=== PATIENT | female | born 1970 | race American Indian/Alaskan Native ===

== ENCOUNTER 2017-04-01 16:27 | Emergency (ER) | payer OTHER ==
[2017-04-01 16:30] VITALS: BMI 30.1
[2017-04-01] MEDS ORDERED: Albuterol-Ipratrop 3 mg / 0.5 (3 ml) UD IH STA (16:42)
--- NOTE | 2017-04-01 16:44 | ED PDOC ---
Arrival/HPI - General Chief Complaint: Shortness Of Breath Time Seen by Provider: 04/01/17 16:41 Historian: Patient - History of Present Illness Narrative History of Present Illness (Text): 04/01/17 16:34 A 46 year old female, whose past medical history includes DVT (in 2001, finished anticoagulant course), presents to the emergency department complaining of a productive cough for the past 2 weeks. Patient reports yesterday she developed a sharp pain to the left back while coughing, so she decided to come to the emergency department to get evaluated. Pain is worse when taking a deep breath. She denies any chest pain, shortness of breath, fever , or other complaints at this time. Time/Duration: > week Symptom Onset: Other Symptom Course: Other Quality: Other Activities at Onset: Rest Context: Home Past Medical History - Provider Review Nursing Documentation Reviewed: Yes - Infectious Disease Hx of Infectious Diseases: None - Tetanus Immunization Tetanus Immunization: Unknown - Cardiac Hx Cardiac Disorders: Yes Hx Peripheral Edema: Yes Other/Comment: dvt 2010, " supraprominent vein lower right head as per pt - Pulmonary Hx Respiratory Disorders: No - Neurological Hx Migraine: Yes Other/Comment: neuropathy hands and left leg, "nerves in hands and left leg swollen" as per pt - HEENT Hx HEENT Disorder: No - Renal Hx Renal Disorder: No - Endocrine/Metabolic Hx Endocrine Disorders: No - Hematological/Oncological Hx Blood Disorders: No Hx Anemia: Yes - Integumentary Hx Dermatological Disorder: No - Musculoskeletal/Rheumatological Hx Falls: No - Gastrointestinal Hx Gastrointestinal Disorders: No - Genitourinary/Gynecological Hx Genitourinary Disorders: Yes (heavy periods) Other/Comment: uterine fibroids - Psychiatric Hx Anxiety: Yes Hx Substance Use: No Other/Comment: "stutters and smokes heavily when I have anxiety" as per pt - Past Surgical History Past Surgical History: No Previous - Surgical History Hx Orthopedic Surgery: Yes (left foot) - Anesthesia Hx Anesthesia: Yes Hx Anesthesia Reactions: No Hx Malignant Hyperthermia: No - Suicidal Assessment Feels Threatened In Home Enviroment: No Family/Social History - Physician Review Nursing Documentation Reviewed: Yes Family/Social History: Unknown Family HX Smoking Status: Heavy Smoker > 10 Cigarettes Daily Hx Alcohol Use: No Hx Substance Use: No Hx Substance Use Treatment: No Allergies/Home Meds Allergies/Adverse Reactions: Allergies Penicillins Allergy (Verified 04/01/17 16:30) RASH sulfamethoxazole [From Bactrim] Allergy (Verified 04/01/17 16:30) WHEEZING trimethoprim [From Bactrim] Allergy (Verified 04/01/17 16:30) WHEEZING Physical Exam - Physical Exam Narrative Physical Exam (Text): - Review of Systems Constitutional: Normal. absent: Fatigue, Weight Change, Fevers Eyes: Normal ENT: Normal Respiratory: Cough, Sputum. absent: SOB Cardiovascular: Normal absent: Chest pain, Palpitations, Syncope Gastrointestinal: Normal absent: Abdominal pain, Diarrhea, Nausea, Vomiting Genitourinary: Normal. absent: Dysuria, Frequency, Hematuria Musculoskeletal: Back pain. absent: Arthralgias, Neck Pain Skin: Normal Neurological: Normal absent: Focal Weakness Endocrine: Normal Hemo/Lymphatic: Normal Psychiatric: Normal - Physical exam Patient appears age appropriate, speaking full sentences without difficulty. - Systems Exam Head: Present: Atraumatic, Normocephalic Pupils: Present: PERRL Extraocular Muscles: Present: EOMI Conjunctiva: Present: Normal Mouth: Present: Moist Mucous Membranes Neck: Present: Normal Range of Motion. No: MIDLINE TENDERNESS, Paraspinal Tenderness Respiratory/Chest: Present: Good Air Exchange. Diffuse rhonchi but greater on the left. Reproducible left posterior rib pain with palpation. No: Respiratory Distress, Accessory Muscle Use, Tachypneic Cardiovascular: Present: Regular Rate and Rhythm, Normal S1, S2, Peripheral Pulses Present. No: Murmurs Abdomen: Present: Normal Bowel Sounds, No: Tenderness, Peritoneal Signs, Rebound, Guarding, Distention Back: Present: Normal Inspection. No: Midline Tenderness, Paraspinal Tenderness Upper Extremity: Present: Normal Inspection. No: Cyanosis, Edema Lower Extremity: Present: Normal Inspection. No: Edema Neurological: Present: GCS=15, Speech Normal, cranial nerves II through XII fully intact with no cerebellar abnormality, neuro-sensory fully intact. No focal neurological deficits. Skin: Present: Warm, Dry, Normal Color. No: Rashes Lymphatic: Present: OX3, NI, NC Psychiatric: Present: Alert, Oriented x 3, Normal Insight, Normal Concentration Vital Signs Reviewed: Yes Vital Signs Temp Pulse Resp BP Pulse Ox 04/01/17 16:28 97.4 F L 64 18 115/73 100 Respiratory Rate: Normal Appearance: Positive for: Well-Appearing, Non-Toxic, Comfortable Pain Distress: None Mental Status: Positive for: Alert and Oriented X 3 Medical Decision Making ED Course and Treatment: 04/01/17 16:34 Impression: A 46 year old female with a productive cough and left posterior rib pain. On physical examination the patient has diffuse rhonchi (greater on the left) and reproducible pain on the left posterior ribs. Differential Diagnosis include but are not limited to: Pneumonia vs. Bronchitis vs. Spasm Plan: -- EKG -- Chest X-ray -- Labs -- Duoneb, Toradol and Prednisone -- Reassess and disposition Progress Notes: EKG: Ordered, reviewed, and independently interpreted the EKG. Rate : 65 BPM Rhythm : NSR Interpretation : No ST-segment elevations, normal intervals. Interpreted by me. 04/01/17 18:02 Smoking Cessation Counseling: The patient was counseled as to the multiple risks to his/her health from continued use of tobacco products. It was explained that continuing to smoke may lead to multiple short and watermelon inspector negative health consequences, including but not limited to mouth/esophageal/lung cancer, COPD, and heart disease. He/she states he/she understands these risks, and also understands the options and resources available to him/her to help him/her stop smoking. Nicotine replacement therapy, local hotlines, and local resources were discussed as viable options for helping him/her stop his/her tobacco use. The total time spent counseling the patient regarding tobacco cessation was 4 minutes. 04/01/17 18:15 Chest x-ray read by me shows no cardiomegaly' no effusions; right lower lobe infiltrates. 04/01/17 19:07 pt reports feels better denies complaints at this time in no resp distress rhonchi significantly inproved d-dimer negative will dc home with inhailer, prednisode, abx, pain meds pt states she feels comfortable being dc'd home with outpatient f/u Pt states she understands to return to the ER right away for new or worsening symptoms or for inability to f/u with PMD or specialist as instructed. Patient states that she fully agrees with and understands discharge instructions. States that she agrees with the plan and disposition. Verbalized and repeated discharge instructions and plan. I have given the patient opportunity to ask any additional questions. - Lab Interpretations Lab Results: 04/01/17 17:00 04/01/17 17:00 Lab Results 04/01/17 17:00: Sodium 137, Potassium 4.1, Chloride 102, Carbon Dioxide 28, Anion Gap 11, BUN 10, Creatinine 0.8, Est GFR ( Amer) > 60, Est GFR (Non- Af Amer) > 60, Random Glucose 102, Calcium 8.6, Total Bilirubin 0.7, AST 28, ALT 22, Alkaline Phosphatase 48, Total Protein 7.2, Albumin 4.1, Globulin 3.0, Albumin/Globulin Ratio 1.4 04/01/17 17:00: PT 11.3, INR 1.05, APTT 25.5, D-Dimer, Quantitative 0.38 04/01/17 17:00: WBC 5.4 D, RBC 4.68, Hgb 10.7 L, Hct 33.6 L, MCV 71.8 L, MCH 22.9 L, MCHC 31.8, RDW 15.8 H, Plt Count 211, MPV 9.8, Gran % 47.9 L, Lymph % ( Auto) 44.4 H, [place] % (Auto) 5.6, Eos % (Auto) 1.7, Baso % (Auto) 0.4, Gran # 2.58, Lymph # 2.4, [place] # 0.3, Eos # 0.1, Baso # 0.02 I have reviewed the lab results: Yes - RAD Interpretation Radiology Orders: 04/01/17 16:44 CHEST TWO VIEWS (PA/LAT) [RAD] Stat - Medication Orders Current Medication Orders: Discontinued Medications Albuterol/Ipratropium (Duoneb 3 Mg/0.5 Mg (3 Ml) Ud) 3 ml IH STAT STA Stop: 04/01/17 16:43 Last Admin: 04/01/17 17:17 Dose: 3 ml Ketorolac Tromethamine (Toradol) 15 mg IVP STAT STA Stop: 04/01/17 16:43 Last Admin: 04/01/17 17:17 Dose: 15 mg Prednisone (Prednisone Tab) 60 mg PO STAT ONE Stop: 04/01/17 16:43 Last Admin: 04/01/17 17:17 Dose: 60 mg - Scribe Statement The provider has reviewed the documentation as recorded by the Pauly Andino Provider Aideibe Attestation: All medical record entries made by the Scribe were at my direction and personally dictated by me. I have reviewed the chart and agree that the record accurately reflects my personal performance of the history, physical exam, medical decision making, and the department course for this patient. I have also personally directed, reviewed, and agree with the discharge instructions and disposition. Disposition/Present on Arrival - Present on Arrival Any Indicators Present on Arrival: No History of DVT/PE: No History of Uncontrolled Diabetes: No Urinary Catheter: No History of Decub. Ulcer: No History Surgical Site Infection Following: None - Disposition Have Diagnosis and Disposition been Completed?: Yes Diagnosis: Cough Disposition: HOME/ ROUTINE Disposition Time: 19:11 Patient Plan: Discharge Condition: GOOD Discharge Instructions (ExitCare): Acute Bronchitis (ED), Back Pain (ED) Additional Instructions: PLEASE RETURN TO THE EMERGENCY DEPARTMENT FOR NEW OR WORSENING SYMPTOMS. RETURN RIGHT AWAY IF YOU CANNOT FOLLOW UP WITH YOUR PRIMARY CARE DOCTOR, CLINIC, OR SPECIALIST IN 1-2 DAYS. Prescriptions: Azithromycin [Zithromax] 250 mg PO DAILY #1 packet Benzonatate [Tessalon Perle] 100 mg PO Q8 PRN #12 capsule PRN Reason: Cough Ibuprofen [Motrin] 600 mg PO Q8 PRN #12 tab PRN Reason: Pain, Moderate (4-7) predniSONE [predniSONE Tab] 60 mg PO DAILY #12 tab Referrals: Pan Ledesma DO [Primary Care Provider] - Follow up with primary Forms: WORK NOTE
[2017-04-01 17:31] LABS: BASO # 0.02 K/mm3 (0.0-2.0); BASO % 0.4 % (0.0-3.0); EOS # 0.1 (0.0-0.7); EOS % 1.7 % (1.5-5.0); GRAN # 2.58 (1.4-6.5); GRAN % 47.9 % (50.0-68.0); HEMATOCRIT 33.6 % (36.0-48.0); LYMPH # 2.4 (1.2-3.4); LYMPH % 44.4 % (22.0-35.0); MEAN CELL VOLUME 71.8 fL (80.0-105.0); MEAN CORPUSCULAR HEMOGLOBIN 22.9 pg (25.0-35.0); MEAN CORPUSCULAR HGB CONC 31.8 g/dl (31.0-37.0); MEAN PLATELET VOLUME 9.8 fl (7.0-11.0); MONO # 0.3 (0.1-0.6); MONO % 5.6 % (1.0-6.0); PLATELET COUNT 211 10^3/uL (120.0-450.0); RED CELL DISTRIBUTION WIDTH 15.8 % (11.5-14.5); WHITE BLOOD COUNT 5.4 10^3/ul (4.5-11.0)
[2017-04-01 17:32] LABS: ADD MANUAL DIFF? NO
[2017-04-01 17:47] LABS: INR 1.05 (0.93-1.08); PARTIAL THROMBOPLASTIN TIME 25.5 Seconds (23.7-30.8)
[2017-04-01 17:49] LABS: ALB/GLOB RATIO 1.4 (1.1-1.8); ALKALINE PHOSPHATASE 48 U/L (38-133); ALT/SGPT 22 U/L (7-56); AST/SGOT 28 U/L (15-39); BILIRUBIN,TOTAL 0.7 mg/dL (0.2-1.3); BLOOD UREA NITROGEN 10 mg/dL (7-21); CALCIUM 8.6 mg/dL (8.4-10.5); CARBON DIOXIDE 28 mmol/L (21-33); CHLORIDE 102 mmol/L (98-107); GFR AFRICAN-AMERICAN > 60; GLUCOSE,RANDOM 102 mg/dL (70-110); POTASSIUM 4.1 mmol/L (3.6-5.0); SODIUM 137 mmol/L (132-148); TOTAL PROTEIN 7.2 g/dL (5.8-8.3)
[2017-04-01 17:53] LABS: D DIMER 0.38 mg/L FEU (0-0.50)
[2017-04-01 19:28] VITALS: BP 121/82; PULSE 71; RESP 19; TEMP 98.3; O2SAT 99
--- NOTE | 2017-04-02 09:34 | RAD ---
HISTORY: cough COMPARISON: No prior. TECHNIQUE: Chest PA and lateral FINDINGS: LUNGS: No active pulmonary disease. PLEURA: No significant pleural effusion identified. No pneumothorax apparent. CARDIOVASCULAR: Normal. OSSEOUS STRUCTURES: No significant abnormalities. VISUALIZED UPPER ABDOMEN: Normal. OTHER FINDINGS: None. IMPRESSION: No active disease.
--- NOTE | 2017-04-02 14:27 | CARD ---
APPROVED REPORT EKG Measurement Heart [id number] <Conclusion> Normal sinus rhythm Septal infarct, age undetermined Abnormal ECG
== END 2017-04-01 19:27 | disposition home or self-care (01) ==
LOC: ED 16:27
DX: R05 Cough (principal); Z88.0 Allergy status to penicillin; F17.210 Nicotine dependence, cigarettes, uncomplicated
CPT/HCPCS: 71020; 80053; 85025; 85378; 85610; 85730; 93005; 96374; 99285; J1885

== ENCOUNTER 2017-08-01 11:25 | Emergency (ER) | payer OTHER ==
[2017-08-01 11:40] VITALS: BMI 31.9
--- NOTE | 2017-08-01 12:12 | ED PDOC ---
Arrival/HPI - General Chief Complaint: Back Pain Time Seen by Provider: 08/01/17 11:54 Historian: Patient - History of Present Illness Narrative History of Present Illness (Text): 08/01/17 12:12 A 46 year old female, whose past medical history includes chronic back pain, presents to the emergency department complaining of right lower back pain for the past 2 weeks. Patient notes radiating pain down right lower extremity towards posterior aspect of right ankle. She also reports a numbing pain in her left big toe. No bowel/bladder incontinence. Patient denies any trauma, injury, fever, chills, nausea, vomiting, abdominal pain, urinary symptoms, chest pain, shortness of breath, headache, dizziness or any other complaints. Time/Duration: Other (2 weeks) Symptom Course: Unchanged Quality: Other Context: Other Past Medical History - Provider Review Nursing Documentation Reviewed: Yes - Infectious Disease Hx of Infectious Diseases: None - Tetanus Immunization Tetanus Immunization: Unknown - Cardiac Hx Cardiac Disorders: Yes Hx Peripheral Edema: Yes Other/Comment: dvt 2010, " supraprominent vein lower right head as per pt - Pulmonary Hx Respiratory Disorders: No - Neurological Hx Neurological Disorder: Yes Hx Migraine: Yes Other/Comment: neuropathy hands and left leg, "nerves in hands and left leg swollen" as per pt - HEENT Hx HEENT Disorder: No - Renal Hx Renal Disorder: No - Endocrine/Metabolic Hx Endocrine Disorders: No - Hematological/Oncological Hx Blood Disorders: No Hx Anemia: Yes - Integumentary Hx Dermatological Disorder: No - Musculoskeletal/Rheumatological Hx Falls: No - Gastrointestinal Hx Gastrointestinal Disorders: No - Genitourinary/Gynecological Hx Genitourinary Disorders: Yes (heavy periods) Other/Comment: uterine fibroids - Psychiatric Hx Psychophysiologic Disorder: Yes Hx Anxiety: Yes Hx Substance Use: No - Past Surgical History Past Surgical History: No Previous - Surgical History Hx Orthopedic Surgery: Yes (left foot) - Anesthesia Hx Anesthesia: Yes Hx Anesthesia Reactions: No Hx Malignant Hyperthermia: No - Suicidal Assessment Feels Threatened In Home Enviroment: No Family/Social History - Physician Review Nursing Documentation Reviewed: Yes Family/Social History: No Known Family HX Smoking Status: Heavy Smoker > 10 Cigarettes Daily Hx Alcohol Use: No Hx Substance Use: No Hx Substance Use Treatment: No Allergies/Home Meds Allergies/Adverse Reactions: Allergies Penicillins Allergy (Verified 08/01/17 11:40) RASH sulfamethoxazole [From Bactrim] Allergy (Verified 08/01/17 11:40) WHEEZING trimethoprim [From Bactrim] Allergy (Verified 08/01/17 11:40) WHEEZING Review of Systems - Physician Review All systems were reviewed & negative as marked: Yes - Review of Systems Constitutional: absent: Fevers, Night Sweats Respiratory: SOB (occ sob - no acute changes) Cardiovascular: absent: Chest Pain Gastrointestinal: absent: Abdominal Pain, Nausea, Vomiting Genitourinary Female: absent: Dysuria, Frequency, Hematuria Musculoskeletal: Back Pain (radiating down RLE), Other (Numbing pain in left big toe) Neurological: absent: Headache, Dizziness Physical Exam Vital Signs Reviewed: Yes Vital Signs Temp Pulse Resp BP Pulse Ox 08/01/17 14:46 97.9 F 58 L 17 117/70 97 08/01/17 12:44 66 18 127/75 100 08/01/17 11:43 97.8 F 65 18 128/80 100 Temperature: Afebrile Blood Pressure: Normal Pulse: Regular Respiratory Rate: Normal Appearance: Positive for: Non-Toxic, Uncomfortable (with movement) Pain Distress: Mild (due to back pain) Mental Status: Positive for: Alert and Oriented X 3 - Systems Exam Head: Present: Atraumatic, Normocephalic Pupils: Present: PERRL Conjunctiva: Present: Normal Mouth: Present: Moist Mucous Membranes Pharnyx: Present: Normal. No: ERYTHEMA, EXUDATE Neck: Present: Normal Range of Motion Respiratory/Chest: Present: Clear to Auscultation, Good Air Exchange. No: Respiratory Distress, Accessory Muscle Use Cardiovascular: Present: Regular Rate and Rhythm, Normal S1, S2. No: Murmurs Abdomen: Present: Normal Bowel Sounds. No: Tenderness, Distention, Peritoneal Signs Back: Present: Normal Inspection, Midline Tenderness (lower lumbar spine), Paraspinal Tenderness (b/L - R>L) Upper Extremity: Present: Normal Inspection. No: Cyanosis, Edema Lower Extremity: Present: Normal Inspection. No: Edema Neurological: Present: GCS=15, CN II-XII Intact, Speech Normal Skin: Present: Warm, Dry, Normal Color. No: Rashes Psychiatric: Present: Alert, Oriented x 3, Normal Insight, Normal Concentration Medical Decision Making ED Course and Treatment: 08/01/17 12:12 Impression: A 46 year old female right lower back pain Plan: -- Lumbar spine CT -- Chest xray -- EKG -- Labs -- Urine culture -- Valium, Toradol, Lidoderm and Ultram -- Reassess and disposition Progress Notes: EKG shows sinus bradycardia at 58 BPM with normal intervals, normal axis, no ST /T changes. Interpreted by me. 08/01/17 14:54 CT lumbar spine: FINDINGS: VERTEBRAE: Unremarkable. No fracture. Normal alignment. DISCS/SPINAL CANAL/NEURAL FORAMINA: L1-2: Unremarkable. L2-3: Unremarkable. L3-4: Unremarkable. L4-5: Moderate disc bulge L5-S1: Moderate disc bulge PARASPINAL SOFT TISSUES: Unremarkable. OTHER FINDINGS: None. IMPRESSION: Moderate disc bulge at L4-5 and L5-S1. Blood work is nondiagnostic. CT showing disc bulge, and patient likely with muscle spasms with no motor weakness or bowel/bladder incontinence. Patient feels better s/p meds; will d/c on nsaid, muscle relaxant, lidoderm patch and tramadol, and she has a pmd with whom she can follow up. Patient with no history of seizures, so tramadol/lidocaine is not contraindicated. - Lab Interpretations Lab Results: 08/01/17 13:00 08/01/17 14:00 Lab Results 08/01/17 14:00: Sodium 138, Potassium 3.6, Chloride 102, Carbon Dioxide 28, Anion Gap 12, BUN 8, Creatinine 0.7, Est GFR ( Amer) > 60, Est GFR (Non- Af Amer) > 60, Random Glucose 93, Calcium 8.7, Magnesium 1.8, Total Bilirubin 0.4, AST 20, ALT 26, Alkaline Phosphatase 59, Lactate Dehydrogenase 468, Total Creatine Kinase 140, Troponin I < 0.01, NT-Pro-B Natriuret Pep 58.1, Total Protein 6.7, Albumin 4.0, Globulin 2.7, Albumin/Globulin Ratio 1.5, Lipase 250 08/01/17 13:00: WBC 6.5 D, RBC 4.80, Hgb 11.3 L, Hct 34.4 L, MCV 71.7 L, MCH 23.5 L, MCHC 32.8, RDW 15.9 H, Plt Count 217, MPV 9.6, Gran % 51.8, Lymph % ( Auto) 40.9 H, [place] % (Auto) 4.8, Eos % (Auto) 2.0, Baso % (Auto) 0.5, Gran # 3.37, Lymph # 2.7, [place] # 0.3, Eos # 0.1, Baso # 0.03 08/01/17 12:20: Urine Color Yellow, Urine Appearance Clear, Urine pH 7.0, Ur Specific [place] 1.020, Urine Protein Negative, Urine Glucose (UA) Negative, Urine Ketones Negative, Urine Blood Negative, Urine Nitrate Negative, Urine Bilirubin Negative, Urine Urobilinogen 0.2, Ur Leukocyte Esterase Negative - RAD Interpretation Radiology Orders: 08/01/17 12:12 LUMBAR SPINE W/O CONTRAST [CT] Stat 08/01/17 12:13 CHEST TWO VIEWS (PA/LAT) [RAD] Stat - Medication Orders Current Medication Orders: Discontinued Medications Diazepam (Valium) 5 mg PO ONCE ONE Stop: 08/01/17 12:14 Last Admin: 08/01/17 12:31 Dose: 5 mg Ketorolac Tromethamine (Toradol) 30 mg IVP STAT STA Stop: 08/01/17 12:13 Last Admin: 08/01/17 13:06 Dose: 30 mg [facility] Pain Assessment Document 08/01/17 13:06 IT (Rec: 08/01/17 13:06 [place] [id number]) Pain Reassessment Is this a pain reassessment? No Sleep Is patient sleeping during reassessment? No Presence of Pain Presence of Pain Yes Pain Scale Used Pain Scale Used Numeric Location Left, Right or Bilateral Right Upper or Lower Lower IVP Administration Document 08/01/17 13:06 IT (Rec: 08/01/17 13:06 [id number] Charges for Administration # of IVP Administrations 1 Re-Assess: MAR Pain Assessment Document 08/01/17 14:06 IT (Rec: 08/01/17 14:49 [place] [id number]) Pain Reassessment Is this a pain reassessment? Yes Sleep Is patient sleeping during reassessment? No Presence of Pain Presence of Pain Yes Pain Scale Used Pain Scale Used Numeric Description Intensity of Pain at present 3 Lidocaine (Lidoderm) 1 ea TD ONCE STA Stop: 08/01/17 12:14 Last Admin: 08/01/17 12:31 Dose: 1 ea MAR Transdermal Patch Site Document 08/01/17 12:31 IT (Rec: 08/01/17 12:31 IT [id number]) Transdermal Patch Site Transdermal Patch Site Right Lower Back Tramadol HCl (Ultram) 100 mg PO STAT STA Stop: 08/01/17 12:31 Last Admin: 08/01/17 13:14 Dose: 100 mg MAR Pain Assessment Document 08/01/17 13:14 IT (Rec: 08/01/17 13:14 IT [id number]) Pain Reassessment Is this a pain reassessment? No Sleep Is patient sleeping during reassessment? No Presence of Pain Presence of Pain Yes Re-Assess: [facility] Pain Assessment Document 08/01/17 14:14 IT (Rec: 08/01/17 14:49 IT [id number]) Pain Reassessment Is this a pain reassessment? Yes Sleep Is patient sleeping during reassessment? No Presence of Pain Presence of Pain Yes Pain Scale Used Pain Scale Used Numeric Description Intensity of Pain at present 3 - Scribe Statement The provider has reviewed the documentation as recorded by the Scribe Nancy Harper Provider Scribe Attestation: All medical record entries made by the Scribe were at my direction and personally dictated by me. I have reviewed the chart and agree that the record accurately reflects my personal performance of the history, physical exam, medical decision making, and the department course for this patient. I have also personally directed, reviewed, and agree with the discharge instructions and disposition. Disposition/Present on Arrival - Present on Arrival Any Indicators Present on Arrival: Yes History of DVT/PE: Yes History of Uncontrolled Diabetes: No Urinary Catheter: No History of Decub. Ulcer: No History Surgical Site Infection Following: None - Disposition Have Diagnosis and Disposition been Completed?: Yes Diagnosis: Bulging lumbar disc, Lumbar radiculopathy Disposition: HOME/ ROUTINE Disposition Time: 15:15 Patient Plan: Discharge Condition: GOOD Discharge Instructions (ExitCare): Lumbar Radiculopathy (ED), Lumbar Disc Herniation (ED), Back Exercises (ED) Additional Instructions: Avoid heavy lifting. Take the medications as prescribed. Follow up with your primary care doctor. Return to the emergency department if any new concerning symptoms. Prescriptions: Baclofen [Lioresal] 1 cap PO TID PRN #20 tab PRN Reason: Pain, Moderate (4-7) Lidocaine 5% [Lidoderm] 1 ea TD DAILY #10 patch Naproxen [Naprosyn] 500 mg PO BID PRN #30 tab PRN Reason: Pain traMADol [Ultram] 1 - 2 tab PO Q8H PRN #15 tab PRN Reason: Pain, Severe (8-10) Referrals: Lucian Sainz MD [Primary Care Provider] - Follow up with primary Forms: [employer] (Togolese), WORK NOTE
[2017-08-01] MEDS ORDERED: TraMADol/Apap 37.5/325 mg Tab PO STA (12:13)
[2017-08-01] MEDS ORDERED: Lidocaine 5% Patch TD STA (12:13)
[2017-08-01 12:32] LABS: URINE APPEARANCE CLEAR (CLEAR); URINE BILIRUBIN NEGATIVE (NEGATIVE); URINE BLOOD NEGATIVE (NEGATIVE); URINE COLOR YELLOW (YELLOW); URINE GLUCOSE (UA) NEGATIVE (NEGATIVE); URINE KETONE NEGATIVE (NEGATIVE); URINE LEUKOCYTE ESTERASE NEGATIVE Leu/uL (NEGATIVE); URINE PROTEIN NEGATIVE mg/dL (<30 mg/dL); URINE UROBILINOGEN 0.2 E.U./dL (<1 E.U./dL)
--- NOTE | 2017-08-01 12:56 | CT ---
PROCEDURE: CT Lumbar Spine without contrast HISTORY: severe low back pain radiating to the right side COMPARISON: None. TECHNIQUE: Axial computed tomography images were obtained of the lumbar spine without the use of intravenous contrast. Coronal and sagittal reformatted images were created and reviewed. Radiation dose: Total exam DLP = 604 mGy-cm. This CT exam was performed using one or more of the following dose reduction techniques: Automated exposure control, adjustment of the mA and/or kV according to patient size, and/or use of iterative reconstruction technique. FINDINGS: VERTEBRAE: Unremarkable. No fracture. Normal alignment. DISCS/SPINAL CANAL/NEURAL FORAMINA: L1-2: Unremarkable. L2-3: Unremarkable. L3-4: Unremarkable. L4-5: Moderate disc bulge L5-S1: Moderate disc bulge PARASPINAL SOFT TISSUES: Unremarkable. OTHER FINDINGS: None. IMPRESSION: Moderate disc bulge at L4-5 and L5-S1.
--- NOTE | 2017-08-01 13:06 | RAD ---
HISTORY: sob COMPARISON: 04/01/2017 TECHNIQUE: Chest PA and lateral FINDINGS: LUNGS: No active pulmonary disease. PLEURA: No significant pleural effusion identified. No pneumothorax apparent. CARDIOVASCULAR: Normal. OSSEOUS STRUCTURES: No significant abnormalities. VISUALIZED UPPER ABDOMEN: Normal. OTHER FINDINGS: None. IMPRESSION: No active disease.
[2017-08-01 13:24] LABS: BASO # 0.03 K/mm3 (0.0-2.0); BASO % 0.5 % (0.0-3.0); EOS # 0.1 (0.0-0.7); GRAN # 3.37 (1.4-6.5); GRAN % 51.8 % (50.0-68.0); HEMATOCRIT 34.4 % (36.0-48.0); LYMPH # 2.7 (1.2-3.4); LYMPH % 40.9 % (22.0-35.0); MEAN CELL VOLUME 71.7 fl (80.0-105.0); MEAN CORPUSCULAR HEMOGLOBIN 23.5 pg (25.0-35.0); MEAN CORPUSCULAR HGB CONC 32.8 g/dl (31.0-37.0); MEAN PLATELET VOLUME 9.6 fl (7.0-11.0); MONO # 0.3 (0.1-0.6); MONO % 4.8 % (1.0-6.0); RED CELL DISTRIBUTION WIDTH 15.9 % (11.5-14.5); WHITE BLOOD COUNT 6.5 10^3/ul (4.5-11.0)
[2017-08-01 14:23] LABS: ALB/GLOB RATIO 1.5 (1.1-1.8); ALKALINE PHOSPHATASE 59 U/L (38-126); ALT/SGPT 26 U/L (7-56); AST/SGOT 20 U/L (14-36); BILIRUBIN,TOTAL 0.4 mg/dL (0.2-1.3); BLOOD UREA NITROGEN 8 mg/dL (7-21); CALCIUM 8.7 mg/dL (8.4-10.5); CARBON DIOXIDE 28 mmol/L (21-33); CHLORIDE 102 mmol/L (98-107); GFR AFRICAN-AMERICAN > 60; GLUCOSE,RANDOM 93 mg/dL (70-110); LIPASE 250 U/L (23-300); MAGNESIUM 1.8 mg/dL (1.7-2.2); POTASSIUM 3.6 mmol/L (3.6-5.0); SODIUM 138 mmol/L (132-148); TOTAL PROTEIN 6.7 g/dL (5.8-8.3)
[2017-08-01 14:35] LABS: TROPONIN I < 0.01 ng/mL
[2017-08-01 14:49] VITALS: RESP 17
[2017-08-01 15:28] VITALS: BP 120/82; PULSE 62; TEMP 98.2; O2SAT 98
--- NOTE | 2017-08-02 08:54 | CARD ---
APPROVED REPORT EKG Measurement Heart [id number] CT [id number] <Conclusion> Sinus bradycardia Possible septal CT, old No change
== END 2017-08-01 15:28 | disposition home or self-care (01) ==
LOC: ED 11:25
DX: M51.16 Intervertebral disc disorders with radiculopathy, lumbar region (principal); F17.210 Nicotine dependence, cigarettes, uncomplicated; I25.2 Old myocardial infarction; Z88.0 Allergy status to penicillin
CPT/HCPCS: 71020; 72131; 80053; 81003; 82550; 83615; 83690; 83735; 83880; 84484; 85025; 87086; 93005; 96374; 99283; J1885

== ENCOUNTER 2018-12-06 10:49 | Emergency (ER) | payer MEDICAID, OTHER ==
[2018-12-06 10:51] VITALS: BMI 32.5
[2018-12-06 11:07] VITALS: RESP 18
[2018-12-06] MEDS ORDERED: DiphenhydrAMINE 12.5 mg/5 ml LIQ UD (5 ml) PO STA (11:35)
--- NOTE | 2018-12-06 11:38 | ED PDOC ---
Arrival/HPI - General Chief Complaint: Allergic Reaction Time Seen by Provider: 12/06/18 10:55 Historian: Patient - History of Present Illness Narrative History of Present Illness (Text): 12/06/18 11:35 A 48 year old female with no significant past medical history presents to the emergency department complaining of facial swelling and itchy rash since yesterday morning. Patient notes experiencing associated rhinorrhia, cough with sputum, chest pain, palpitations, back pain, and diaphoresis. Patient reports she awoke yesterday morning with facial swelling and hives all around her body. Patient notes she went to her primary care doctor who prescribed her prednisone and zyrtec. Patient states the predisone did not work and she did not take the zyrtec but she has taken benadryl to some relief. Patient reports this morning her face was swollen once again and noticed pimples on her body. Patient notes she has taken prednisone and benadryl this morning. Patient notes she cannot determine if she has fever and states she has menopause. Patient states her only recent abnormal activity was using Anjum soap and eating a lemon square. Patient denies any fever, sore throat, or any other complaints. PMD: Lucian Caputo Time/Duration: Other (2 days) Symptom Onset: Gradual Symptom Course: Unchanged Activities at Onset: Light Context: Home Past Medical History - Provider Review Nursing Documentation Reviewed: Yes - Infectious Disease Hx of Infectious Diseases: None - Tetanus Immunization Tetanus Immunization: Unknown - Cardiac Hx Peripheral Edema: Yes - Pulmonary Hx Tuberculosis: No - Neurological Hx Migraine: Yes - HEENT Hx HEENT Disorder: No - Renal Hx Renal Disorder: No - Endocrine/Metabolic Hx Endocrine Disorders: No - Hematological/Oncological Hx Anemia: Yes - Integumentary Hx Dermatological Disorder: No - Musculoskeletal/Rheumatological Hx Arthritis: Yes (lower back) Hx Falls: No Hx Fractures: Yes (left foot injury 10/2012 [facility] MRI showing metatarsal fracture and liga injury) Hx Osteoporosis: Yes - Gastrointestinal Hx Gastrointestinal Disorders: No - Genitourinary/Gynecological Hx Sexually Transmitted Diseases: No - Psychiatric Hx Anxiety: Yes Hx Substance Use: Yes (BENZO) - Past Surgical History Past Surgical History: No Previous - Surgical History Hx Orthopedic Surgery: Yes (left foot) - Anesthesia Hx Anesthesia: Yes Hx Anesthesia Reactions: No Hx Malignant Hyperthermia: No - Suicidal Assessment Feels Threatened In Home Enviroment: No Family/Social History - Physician Review Nursing Documentation Reviewed: Yes Family/Social History: No Known Family HX Smoking Status: Heavy Smoker > 10 Cigarettes Daily Hx Alcohol Use: No Hx Substance Use: Yes (BENZO) Substance used: Heroine Hx Substance Use Treatment: No Allergies/Home Meds Allergies/Adverse Reactions: Allergies Penicillins Allergy (Verified 12/06/18 11:07) RASH sulfamethoxazole [From Bactrim] Allergy (Verified 12/06/18 11:07) WHEEZING trimethoprim [From Bactrim] Allergy (Verified 12/06/18 11:07) WHEEZING Home Medications: Home Meds Medication Instructions Recorded Confirmed Fioricet 1 tab PO Q6 PRN 09/28/17 12/06/18 Butalbital/Aspirin/Caffeine 1 tab PO Q6H PRN 12/06/18 12/06/18 [Bmhzky-Iixauxf-Rrdif 50-325-40] Cetirizine HCl [All Day Allergy 10 mg PO DAILY 12/06/18 12/06/18 Relief] Fluticasone Propionate [Flovent 50 mcg INH DAILY 12/06/18 12/06/18 Diskus] Hydrocortisone 2.5% 2.5 % TOP PRN PRN 12/06/18 12/06/18 Ibuprofen [Ibuprofen Ib] 600 mg PO PRN PRN 12/06/18 12/06/18 Methadone [Methadose] 210 mg PO DAILY 12/06/18 12/06/18 Triamcinolone 0.1% [Kenalog 0.1% 0.5 % TOP PRN PRN 12/06/18 12/06/18 Oint] predniSONE [predniSONE Tab] 50 mg PO DAILY 12/06/18 12/06/18 Review of Systems - Physician Review All systems were reviewed & negative as marked: Yes - Review of Systems Constitutional: absent: Fevers ENT: Rhinorrhea. absent: Sore Throat Respiratory: Cough, Sputum Cardiovascular: Chest Pain, Palpitations Musculoskeletal: Back Pain Skin: Rash (itchy rash to her back), Other (Facial swelling) Endocrine: Diaphoresis Physical Exam Vital Signs Reviewed: Yes Vital Signs Temp Pulse Resp BP Pulse Ox 12/06/18 11:02 98.8 F 77 18 143/95 H 98 Temperature: Afebrile Blood Pressure: Hypertensive Pulse: Regular Respiratory Rate: Normal Appearance: Positive for: Well-Appearing Mental Status: Positive for: Alert and Oriented X 3 - Systems Exam Head: Present: Atraumatic, Normocephalic Pupils: Present: PERRL Extroacular Muscles: Present: EOMI Conjunctiva: Present: Normal Mouth: Present: Moist Mucous Membranes Pharnyx: Present: Normal Nose (Internal): Present: Normal Inspection, Other (post nasal drip) Neck: Present: Normal Range of Motion Respiratory/Chest: Present: Clear to Auscultation, Good Air Exchange. No: Respi ratory Distress, Accessory Muscle Use Cardiovascular: Present: Regular Rate and Rhythm, Normal S1, S2. No: Murmurs Abdomen: No: Tenderness, Distention, Peritoneal Signs Back: Present: Normal Inspection Upper Extremity: Present: Normal Inspection. No: Cyanosis, Edema Lower Extremity: Present: Normal Inspection. No: Edema Neurological: Present: GCS=15, CN II-XII Intact, Speech Normal Skin: Present: Warm, Dry, Rashes (spotty red rash to upper back) Psychiatric: Present: Alert, Oriented x 3, Normal Insight, Normal Concentration Medical Decision Making ED Course and Treatment: 12/06/18 11:38 Impression: 48 year old female presenting to the emergency room complaining of facial swelling and itchy rash. Plan: -- CMP -- CBC -- D Dimer -- Chest X-ray -- Benadryl -- Rapid flu Test -- Reassess and disposition Prior Visits: Notes and results from previous visits were reviewed. Progress Notes: - RAD Interpretation Narrative RAD Interpretations (Text): 12/06/18 12:45 Procedure: Chest X-Ray Dictator: Rod Rodriguez Impression: No active disease. Procedure: Lumbar Spine X-Ray Dictator: Rod Rodriguez Impression: Unremarkable radiographs of the lumbar spine. Customer Sales Representative: Radiologist - Scribe Statement The provider has reviewed the documentation as recorded by the Pauly Rivera All medical record entries made by the Pauly were at my direction and personally dictated by me. I have reviewed the chart and agree that the record accurately reflects my personal performance of the history, physical exam, medical decision making, and the department course for this patient. I have also personally directed, reviewed, and agree with the discharge instructions and disposition. Disposition/Present on Arrival - Present on Arrival Any Indicators Present on Arrival: No History of DVT/PE: No History of Uncontrolled Diabetes: No Urinary Catheter: No History of Decub. Ulcer: No History Surgical Site Infection Following: None - Disposition Have Diagnosis and Disposition been Completed?: Yes Diagnosis: Allergic reaction Disposition: HOME/ ROUTINE Disposition Time: 20:14 (not actual) Patient Plan: Discharge Condition: STABLE Discharge Instructions (ExitCare): Hives, Allergy Skin Testing Additional Instructions: return for any new or worsening symptoms. Prescriptions: Prednisone [Deltasone] 50 mg PO DAILY 2 Days #10 tablet Referrals: Lucian Sainz MD [Primary Care Provider] - Follow up with primary Forms: [facility] (B[place]ian), WORK NOTE
[2018-12-06 12:19] LABS: EOS % 0.3 % (1.5-5.0); HEMOGLOBIN 11.7 g/dL (12.0-16.0); LYMPH % 13.5 % (22.0-35.0); MEAN CORPUSCULAR HEMOGLOBIN 23.4 pg (25.0-35.0); MEAN CORPUSCULAR HGB CONC 32.1 g/dl (31.0-37.0); MEAN PLATELET VOLUME 9.5 fl (7.0-11.0); MONO # 0.2 (0.1-0.6); MONO % 2.4 % (1.0-6.0); RED CELL DISTRIBUTION WIDTH 16.2 % (11.5-14.5); WHITE BLOOD COUNT 7.1 10^3/uL (4.5-11.0)
[2018-12-06 12:24] LABS: ALB/GLOB RATIO 1.4 (1.1-1.8); ALBUMIN 4.6 g/dL (3.0-4.8); ALT/SGPT 17 U/L (7-56); AST/SGOT 29 U/L (14-36); BLOOD UREA NITROGEN 15 mg/dL (7-21); CALCIUM 9.3 mg/dL (8.4-10.5); GFR NON-AFRICAN AMERICAN > 60
--- NOTE | 2018-12-06 12:36 | RAD ---
Date of service: 12/06/2018 HISTORY: cough, pneumonia COMPARISON: No prior. TECHNIQUE: Chest PA and lateral FINDINGS: LUNGS: No active pulmonary disease. PLEURA: No significant pleural effusion identified. No pneumothorax apparent. CARDIOVASCULAR: No aortic atherosclerotic calcification present. Normal cardiac size. No pulmonary vascular congestion. OSSEOUS STRUCTURES: No significant abnormalities. VISUALIZED UPPER ABDOMEN: Normal. OTHER FINDINGS: None. IMPRESSION: No active disease.
--- NOTE | 2018-12-06 12:39 | RAD ---
Date of service: 12/06/2018 PROCEDURE: Radiographs of the Lumbar Spine. HISTORY: pain COMPARISON: No prior. FINDINGS: BONES: Normal alignment. No listhesis. No fracture. DISC SPACES: Unremarkable. OTHER FINDINGS: None. IMPRESSION: Unremarkable radiographs of the lumbar spine.
[2018-12-06] MEDS ORDERED: Iohexol 350 MG/100 ML VIAL ONE (13:26)
--- NOTE | 2018-12-06 14:37 | CT ---
Date of service: 12/06/2018 PROCEDURE: CT Chest with contrast (Pulmonary Angiogram) HISTORY: pulmonary embolism COMPARISON: None available. TECHNIQUE: Axial computed tomography images were obtained of the chest in the pulmonary arterial phase of enhancement. Coronal and sagittal reformatted images were created and reviewed. Intravenous contrast dose: 100 cc of Omni 350 Radiation dose: Total exam DLP = 454.89 mGy-cm. This CT exam was performed using one or more of the following dose reduction techniques: Automated exposure control, adjustment of the mA and/or kV according to patient size, and/or use of iterative reconstruction technique. FINDINGS: PULMONARY ARTERIES: Unremarkable. No pulmonary embolism. AORTA: No acute findings. No thoracic aortic aneurysm. No aortic atherosclerotic calcification or mural plaque present. LUNGS: Unremarkable. No nodule, mass or pulmonary consolidation. PLEURAL SPACES: Unremarkable. No effusion or pneumothorax. HEART: Unremarkable. No cardiomegaly. No significant pericardial effusion. LYMPH NODES: No lymphadenopathy. BONES, CHEST WALL: Unremarkable. No fracture or destructive lesion OTHER FINDINGS: Unremarkable. IMPRESSION: Unremarkable CT pulmonary angiogram. No pulmonary embolus.
[2018-12-06 15:23] VITALS: BP 139/84; PULSE 61; TEMP 98.7; O2SAT 95
== END 2018-12-06 15:27 | disposition home or self-care (01) ==
LOC: ED 10:49
DX: T78.40XA Allergy, unspecified, initial encounter (principal); X58.XXXA Exposure to other specified factors, initial encounter; D64.9 Anemia, unspecified
CPT/HCPCS: 71046; 71275; 72110; 80053; 81025; 84484; 85025; 85378; 87804; 99284; Q9967